=== PATIENT | female | born 1965 | race Two or more races ===

== ENCOUNTER 2018-11-06 14:37 | Inpatient (IN) | payer OTHER ==
[~2018-11-06] VITALS: Ht 193 cm; Wt 103.5 kg
[2018-11-06 18:59] VITALS: BP 139/89
[2018-11-06] MEDS ORDERED: HYDROCODONE/APAP 5/325MG 1 EACH TABLET PO PRN (19:30)
[2018-11-06] MEDS ORDERED: Z GUARD REMEDY 2 OZ OINT TP PRN (19:30)
[2018-11-06] MEDS ORDERED: ZOLPIDEM TARTRATE 5 MG TABLET PO PRN (19:30)
[2018-11-06] MEDS ORDERED: ONDANSETRON HCL/PF 4 MG/2 ML VIAL IVP PRN (19:30)
[2018-11-06] MEDS ORDERED: ACETAMINOPHEN 325 MG TABLET PO PRN (19:30)
[2018-11-06 20:00] VITALS: BP 138/84
[2018-11-06] MEDS ORDERED: CEFTRIAXONE 1 G in IV D5W 50 ML IV SCH (20:00)
--- NOTE | 2018-11-06 20:10 | NUR ---
AC/DC REWINDER NOTES RECEIVED REPORT FROM CHIDI Galaviz RN. PATIENT A/A/O X3, ABLE TO MAKE NEEDS KNOWN. BREATHING EVEN & UNLABORED, TOLERATING ROOM AIR. DENIES ANY SOB OR CONGESTION BUT C/O OF SLIGHT SORE THROAT. ON TELE W/ SINUS RHYTHM, HR 70S. RIGHT HAND IV #18 INTACT & PATENT W/ DRESSING CDI. ABLE TO AMBULATE & TURN INDEPENDENTLY IN BED. DENIES ANY PAIN OR DISCOMFORT @ THIS TIME. SAFETY MEASURES IN PLACE W/ SIDE RAILS UP & CALL LIGHT WITHIN REACH. INSTRUCTED TO CALL FOR ASSISTANCE.
[2018-11-06] MEDS ORDERED: ENOXAPARIN SODIUM 40 MG/0.4 ML DISP.SYRIN SQ ONE (22:00)
[2018-11-06] MEDS ORDERED: DOXYCYCLINE 100 MG VIAL ONE (22:23)
[2018-11-06] MEDS: OSELTAMIVIR PHOSPHATE 75 MG CAPSULE PO SCH (22:32)
[2018-11-06] MEDS: DOXYCYCLINE 100 MG in IV NS 0.9% 100 ML IV SCH (22:33)
[2018-11-06] MEDS: IV NS 0.9% 1,000 ML IV PRN (22:38)
--- NOTE | 2018-11-07 01:00 | NUR ---
TRANSPORTATION DESIGN ENGINEER NOTES PATIENT C/O COUGH & FEELING CONGESTED & ASKING FOR MEDICINE FOR COUGH. INFORMED DR JACOME & RECEIVED NEW ORDER FOR ROBITUSSIN PRN. NEW ORDER NOTED & CARRIED OUT.
[2018-11-07 04:00] VITALS: BP 146/79
[2018-11-07 06:16] LABS: BASOPHILS % (AUTO) 0.7 % (0.0-2.0); EOSINOPHILS % (AUTO) 5.7 % (0.0-6.0); HEMATOCRIT 41 % (33-45); HEMOGLOBIN 13.9 g/dL (11.5-14.8); LYMPHOCYTES # (AUTO) 1.3 /CMM (0.8-4.8); LYMPHOCYTES % (AUTO) 33.4 % (20.0-44.0); MEAN CORPUSCULAR HGB CONC 34 g/dl (31.0-36.0); MEAN CORPUSCULAR VOLUME 91 fL (82-100); MONOCYTES # (AUTO) 0.3 /CMM (0.1-1.30); MONOCYTES % (AUTO) 7.9 % (2.0-12.0); NEUTROPHILS % (AUTO) 52.3 % (43.0-81.0); PLATELET COUNT (AUTO) 184 /CMM (150-450); RED BLOOD CELL COUNT(AUTO) 4.55 MIL/uL (4.0-5.2); WHITE BLOOD COUNT (AUTO) 3.8 K/uL (4.3-11.0)
[2018-11-07 06:34] LABS: ALBUMIN 3.2 g/dL (3.4-5.0); BILIRUBIN,TOTAL 0.3 mg/dL (0.2-1.0); CALCIUM, SERUM 8.3 mg/dL (8.5-10.1); CREATININE 0.7 mg/dL (0.6-1.3); MAGNESIUM 1.7 mg/dL (1.8-2.4); PHOSPHORUS 3.5 mg/dL (2.5-4.9); POTASSIUM 3.9 mmol/L (3.5-5.1); TOTAL PROTEIN, SERUM 6.7 g/dL (6.4-8.2)
[2018-11-07 06:38] LABS: THYROID STIMULATING HORMONE 2.645 uIU/mL (0.358-3.74)
--- NOTE | 2018-11-07 07:20 | NUR ---
RN OPENING NOTE RECEIVED PATIENT AWAKE AND ALERT. CHINESE SPEAKING. ON BEDSIDE. NO EDEMA WAS NOTED. PATENT AMBULATES TO THE RESTROOM BY HERSELF. SKIN IS INTACT. HAS A LEFT HAND #20 WITH NS RUNNING AT 100ML/HR. NO COMPLAINS OF ANY PAIN OR ANY SOB. PATIENT ASKED FOR COUGH MEDICATION. WILL GIVE TO HER ARIANNE. BED ON LOW POSITION. CALL LIGHT WITHIN REACH. WILL CONTINUE TO MONITOR PATIENT THROUGHOUT THE SHIFT
[2018-11-07] MEDS: GUAIFENESIN/D-METHORPHAN HB 5 ML UDC PO PRN ×2 (07:35→12:12)
[2018-11-07 08:00] VITALS: BP 125/85
[2018-11-07] MEDS: DOXYCYCLINE 100 MG in IV NS 0.9% 100 ML IV SCH ×2 (09:20→21:58)
[2018-11-07] MEDS: OSELTAMIVIR PHOSPHATE 75 MG CAPSULE PO SCH ×2 (09:22→16:37)
[2018-11-07] MEDS: IV NS 0.9% 1,000 ML IV PRN ×2 (09:27→22:52)
[2018-11-07] MEDS: CEFTRIAXONE 1 G in IV D5W 50 ML IV SCH (11:01)
[2018-11-07] MEDS: Magnesium 1GM/D5W 100ML PREMIX 100 ML IV SCH ×2 (12:00→13:04)
[2018-11-07] MEDS ORDERED: Magnesium 1 GM/2 ML VIAL IV ONE (14:00)
[2018-11-07 16:00] VITALS: BP 113/83
--- NOTE | 2018-11-07 19:40 | NUR ---
RN CLOSING NOTE PATIENT IN BED AWAKE AND ALERT. FAMILY ON BEDSIDE. ALL MEDS ARE GIVEN. NO COMPLAINS OF ANY PAIN OR ANY SOB AT THIS TIME. PATIENT ASKED FOR COUGH MEDS THIS MORNING. ALL MEDS ADMINISTERED. BED ON LOW POSITION, AMBULATORY. CALL LIGHT WITHIN REACH. ENDORSED TO NOC SHIFT RN
[2018-11-07 20:20] VITALS: BP 117/77
[2018-11-07] MEDS: ENOXAPARIN SODIUM 40 MG/0.4 ML DISP.SYRIN SQ SCH (21:53)
[2018-11-08 04:00] VITALS: BP 107/55
[2018-11-08 04:02] VITALS: BP 107/55
[2018-11-08 06:18] LABS: BASOPHILS % (AUTO) 0.5 % (0.0-2.0); EOSINOPHILS % (AUTO) 6.2 % (0.0-6.0); HEMATOCRIT 40 % (33-45); HEMOGLOBIN 13.6 g/dL (11.5-14.8); LYMPHOCYTES # (AUTO) 1.5 /CMM (0.8-4.8); LYMPHOCYTES % (AUTO) 36.1 % (20.0-44.0); MEAN CORPUSCULAR HGB CONC 34 g/dl (31.0-36.0); MEAN CORPUSCULAR VOLUME 91 fL (82-100); MONOCYTES # (AUTO) 0.3 /CMM (0.1-1.30); MONOCYTES % (AUTO) 8.4 % (2.0-12.0); NEUTROPHILS % (AUTO) 48.8 % (43.0-81.0); PLATELET COUNT (AUTO) 175 /CMM (150-450); RED BLOOD CELL COUNT(AUTO) 4.44 MIL/uL (4.0-5.2); WHITE BLOOD COUNT (AUTO) 4.2 K/uL (4.3-11.0)
[2018-11-08 06:29] LABS: CALCIUM, SERUM 8.5 mg/dL (8.5-10.1); CREATININE 0.8 mg/dL (0.6-1.3); MAGNESIUM 1.9 mg/dL (1.8-2.4); PHOSPHORUS 3.7 mg/dL (2.5-4.9); POTASSIUM 4.4 mmol/L (3.5-5.1)
--- NOTE | 2018-11-08 06:29 | NUR ---
pt with bronchitis, productive cough, no acute distress, 92% -95% room air. slept well, continue with iv fluids, voiding to toilet ambulatory, had diarrhea possibly from multiple antibiotics, will monitor closely pt made aware. all needs attended, vss,afebrile.
--- NOTE | 2018-11-08 07:42 | NUR ---
RN OPENING NOTE RECEIVED PATIENT AWAKE AND ALERT. FRENCH SPEAKING. ON BEDSIDE. NO EDEMA WAS NOTED. PATENT AMBULATES TO THE RESTROOM BY HERSELF. SKIN IS INTACT. HAS A LEFT HAND #20 WITH NS RUNNING AT 100ML/HR. NO COMPLAINS OF ANY PAIN OR ANY SOB. BED ON LOW POSITION. CALL LIGHT WITHIN REACH. WILL CONTINUE TO MONITOR PATIENT THROUGHOUT THE SHIFT
[2018-11-08] MEDS: DOXYCYCLINE 100 MG in IV NS 0.9% 100 ML IV SCH ×2 (09:43→20:36)
[2018-11-08] MEDS: OSELTAMIVIR PHOSPHATE 75 MG CAPSULE PO SCH ×2 (09:43→16:01)
[2018-11-08] MEDS: IV NS 0.9% 1,000 ML IV PRN ×2 (09:47→21:56)
[2018-11-08] MEDS: CEFTRIAXONE 1 G in IV D5W 50 ML IV SCH (10:46)
[2018-11-08 16:00] VITALS: BP 132/73
[2018-11-08] MEDS: LACTOBACILLUS RHAMNOSUS GG 1 EACH CAP.SPRINK PO SCH (16:06)
--- NOTE | 2018-11-08 19:01 | NUR ---
RN CLOSING NOTE PATIENT IN BED AWAKE AND ALERT. ON BEDSIDE. NO COMPLAINS OF ANY PAIN OR ANY SOB. ON 2L NC SATING GOOD AT 98%. ALL MEDS ARE GIVEN. ALL NEEDS MET. DC PLANNING FOR TOMORROW. BED ON LOWEST POSITION, PATIENT AMBULATORY. CALL LIGHT WITHIN REACH. WILL ENDORSE TO NOC SHIFT
[2018-11-08 20:00] VITALS: BP 127/71
--- NOTE | 2018-11-08 20:05 | NUR ---
MS RN NOTES RECEIVED PT ON BED, A/O X 4. WITH FAMILY AT BEDSIDE. ON ROOM AIR NO RESPIRATORY DISTRESS NOTED. IV ACCESS ON LEFT HAND G20 NS @ 100CC/HR PATENT AND INTACT. HEAD OF BED ELEVATED. SIDE RAILS UP. CALL LIGHT WITHIN REACH. BED ALARM ON. WILL CONTINUE TO MONITOR PT CLOSELY.
[2018-11-08] MEDS: ENOXAPARIN SODIUM 40 MG/0.4 ML DISP.SYRIN SQ SCH (20:36)
[2018-11-09 04:00] VITALS: BP 110/72
[2018-11-09 06:22] LABS: BASOPHILS % (AUTO) 0.6 % (0.0-2.0); EOSINOPHILS % (AUTO) 5.6 % (0.0-6.0); HEMATOCRIT 41 % (33-45); HEMOGLOBIN 13.4 g/dL (11.5-14.8); LYMPHOCYTES # (AUTO) 1.7 /CMM (0.8-4.8); LYMPHOCYTES % (AUTO) 36.6 % (20.0-44.0); MEAN CORPUSCULAR HGB CONC 33 g/dl (31.0-36.0); MEAN CORPUSCULAR VOLUME 91 fL (82-100); MONOCYTES # (AUTO) 0.5 /CMM (0.1-1.30); MONOCYTES % (AUTO) 9.8 % (2.0-12.0); NEUTROPHILS # (AUTO) 2.3 /CMM (1.8-8.9); NEUTROPHILS % (AUTO) 47.4 % (43.0-81.0); PLATELET COUNT (AUTO) 165 /CMM (150-450); RED BLOOD CELL COUNT(AUTO) 4.46 MIL/uL (4.0-5.2); WHITE BLOOD COUNT (AUTO) 4.8 K/uL (4.3-11.0)
[2018-11-09 06:48] LABS: CALCIUM, SERUM 8.5 mg/dL (8.5-10.1); CREATININE 0.8 mg/dL (0.6-1.3); MAGNESIUM 1.7 mg/dL (1.8-2.4); POTASSIUM 4.3 mmol/L (3.5-5.1)
--- NOTE | 2018-11-09 07:15 | NUR ---
MS RN OPENING NOTE RECEIVED PATIENT AWAKE AND ALERT. IVORIAN SPEAKING. ON BEDSIDE. NO EDEMA WAS NOTED. PATENT AMBULATES TO THE RESTROOM BY HERSELF. SKIN IS INTACT. HAS A LEFT HAND #20 WITH NS RUNNING AT 100ML/HR. NO COMPLAINS OF ANY PAIN OR ANY SOB. BED ON LOW POSITION. CALL LIGHT WITHIN REACH.SRX2.ON DROPLET PRECAUTIONS. WILL CONTINUE TO MONITOR . Addendum: 11/09/18 at 1820 by DEVON MARROQUIN RN BROTHER AT BEDSIDE
--- NOTE | 2018-11-09 07:20 | NUR ---
MS RN NOTES NO ACUTE CHANGES NOTED DURING THE SHIFT. PROVIDED COMFORT AND SAFETY. WILL ENDORSE TO THE AM NURSE FOR CONTINUITY OF CARE.
[2018-11-09 08:00] VITALS: BP 123/77
[2018-11-09] MEDS ORDERED: DOXYCYCLINE HYCLATE (100 MG) 100 MG TABLET PO SCH (09:00)
[2018-11-09] MEDS: IV NS 0.9% 1,000 ML IV PRN (09:36)
[2018-11-09] MEDS: OSELTAMIVIR PHOSPHATE 75 MG CAPSULE PO SCH ×2 (09:36→16:35)
[2018-11-09] MEDS: LACTOBACILLUS RHAMNOSUS GG 1 EACH CAP.SPRINK PO SCH ×2 (09:36→16:35)
[2018-11-09] MEDS: Magnesium 1GM/D5W 100ML PREMIX 100 ML IV SCH ×2 (10:35→12:47)
[2018-11-09] MEDS: CEFTRIAXONE 1 G in IV D5W 50 ML IV SCH (11:56)
[2018-11-09] MEDS ORDERED: DOXY100T2 PO (13:30)
[2018-11-09] MEDS ORDERED: OSEL75CA PO (13:30)
[2018-11-09 16:00] VITALS: BP 118/64
--- NOTE | 2018-11-09 16:00 | NUR ---
MS RN NOTE SEEN BY DR.TIM COYLE.GOT NEW ORDERS FOR DISCHARGE.
--- NOTE | 2018-11-09 16:17 | NUR ---
MS MATHEMATICIAN RESEARCH NOTE PATIENT D/C HOME IN STABLE CONDITION WITH BROTHER IN PRIVATE CAR.TOOK ALL BELONGINGS.EXIT CARE GIVEN TO PATIENT AND BROTHER.VERBALIZED UNDERSTANDING.INSTRUCTIONS GIVEN TO WEAR MASK AT HOME BECAUSE OF POSITIVE INFLUENZA.EXTRA MASK GIVEN.IV REMOVED ,MINIMAL BLEEDING NOTED.PRESSURE DRESSING APPLIED.CALL MADE TO [facility] [id number] [facility].SPOKE TO CARY AT PHARMACY.THEY RECEIVED NEW ORDERS.INFORMED FAMILY TO INVOICING SPECIALIST MEDICATIONS FROM PHARMACY.INFORMATION GIVEN.NO SKIN ISSUES NOTED.PATIENT REFUSED BODY CHECK.
== END 2018-11-09 21:47 | disposition home or self-care (01) | DRG 133 ==
LOC: TELE1 18:30 → MEDSG1 20:25
PROVIDERS: ADMIT Nurse Practitioner Acute Care; ATTEND Nurse Practitioner Acute Care
DX: J96.01 Acute respiratory failure with hypoxia (principal); E83.42 Hypomagnesemia; J10.1 Influenza due to other identified influenza virus with other respiratory manifestations; D72.819 Decreased white blood cell count, unspecified; E66.9 Obesity, unspecified
CPT/HCPCS: 36415; 71045-TC; 80048-TC; 80053-TC; 80061-TC; 83735-TC; 84100-TC; 84443-TC; 85025-TC; 87081-TC; G0378; J0696; J1650; J3475; J3490; J7030; J7060

== ENCOUNTER 2019-02-24 08:26 | Emergency (ER) | payer OTHER ==
[~2019-02-24] VITALS: Ht 162.6 cm; Wt 102.1 kg
[~2019-02-24 08:26] MED LIST: DOXY100T2 PO; OSEL75CA PO
[2019-02-24 08:46] LABS: APPEARANCE,URINE Clear (CLEAR); BILIRUBIN,URINE Negative (NEGATIVE); BLOOD, URINE Negative Ery/uL (NEGATIVE); KETONES,URINE Negative (NEGATIVE); LEUKOCYTE ESTERASE ,URINE Negative (NEGATIVE); NITRITE, URINE Negative (NEGATIVE); PH,URINE 7.5 (5.0-8.0); PROTEIN,URINE Negative (NEGATIVE); UGLUCOSE Negative (NEGATIVE); UROBILINOGEN,URINE 0.2 EU/dL (0.2)
[2019-02-24] MEDS ORDERED: KETOROLAC TROMETHAMINE 15 MG/ML VIAL ONE (08:50)
[2019-02-24 08:52] LABS: COLOR,URINE Light Yellow (YELLOW)
[2019-02-24] MEDS ORDERED: IV NS 0.9% 1,000 ML BAG IV ONE (09:00)
[2019-02-24] MEDS ORDERED: KETOROLAC TROMETHAMINE INJ 30 MG/ML VIAL IV ONE (09:00)
[2019-02-24 09:01] LABS: BASOPHILS % (AUTO) 0.8 % (0.0-2.0); EOSINOPHILS % (AUTO) 3.8 % (0.0-6.0); HEMATOCRIT 42 % (33-45); LYMPHOCYTES # (AUTO) 1.5 /CMM (0.8-4.8); LYMPHOCYTES % (AUTO) 24.2 % (20.0-44.0); MEAN CORPUSCULAR HGB CONC 34 g/dl (31.0-36.0); MEAN CORPUSCULAR VOLUME 92 fL (82-100); MONOCYTES # (AUTO) 0.4 /CMM (0.1-1.30); MONOCYTES % (AUTO) 5.7 % (2.0-12.0); NEUTROPHILS # (AUTO) 4.1 /CMM (1.8-8.9); NEUTROPHILS % (AUTO) 65.5 % (43.0-81.0); PLATELET COUNT (AUTO) 256 /CMM (150-450); RED BLOOD CELL COUNT(AUTO) 4.54 MIL/uL (4.0-5.2); WHITE BLOOD COUNT (AUTO) 6.2 K/uL (4.3-11.0)
[2019-02-24 09:08] LABS: CALCIUM, SERUM 8.9 mg/dL (8.5-10.1); CREATININE 0.7 mg/dL (0.6-1.3); POTASSIUM 4.4 mmol/L (3.5-5.1)
[2019-02-24 09:13] LABS: ALBUMIN 3.6 g/dL (3.4-5.0); BILIRUBIN,DIRECT 0.1 mg/dL (0.0-0.2); BILIRUBIN,TOTAL 0.2 mg/dL (0.2-1.0)
[2019-02-24 10:25] VITALS: BP 129/90
--- NOTE | 2019-02-24 10:26 | NUR ---
For discharge ACI given verbalized understanding Home ambulatory Stable
== END 2019-02-24 10:26 | disposition home or self-care (01) ==
LOC: ER 08:26
DX: M54.42 Lumbago with sciatica, left side (principal); Z88.6 Allergy status to analgesic agent
CPT/HCPCS: 36415; 74176; 80048; 80076; 81001; 83690; 85025; 87086; 96374; 99284; J1885; J7030; 81000-TC

== ENCOUNTER 2019-11-18 12:54 | Emergency (ER) | payer OTHER ==
[~2019-11-18] VITALS: Ht 162.6 cm; Wt 90.7 kg
[2019-11-18 12:59] VITALS: BP 160/87
--- NOTE | 2019-11-18 13:19 | NUR ---
Patient discharged to home in stable condition. Written and verbal after care instructions given. Patient verbalizes understanding of instruction.
== END 2019-11-18 13:20 | disposition home or self-care (01) ==
LOC: ER 12:58
DX: R05 Cough (principal); R09.81 Nasal congestion; Z88.6 Allergy status to analgesic agent

== ENCOUNTER 2021-10-28 17:55 | Emergency (ER) | payer OTHER ==
[~2021-10-28] VITALS: Ht 162.6 cm; Wt 93.9 kg
--- NOTE | 2021-10-28 17:57 | NUR ---
KORY THIS 56YO FEMALE PATIENT, AMBULATORY, WITH CC OF LEFT ARM PAIN RADIATING TO LEFT SIDE OF NECK AFTER HER COVID VACCINATION YESTERDAY.
--- NOTE | 2021-10-28 17:57 | NUR ---
Note yue in EDM - 10/28/21 at 2006 by LULÚ KORY THIS 56YO FEMALE PATIENT, AMBULATORY, WITH CC OF LEFT ARM PAIN RADIATING TO LEFT SIDE OF NECK AFTER HER COVID VACCINATION YESTERDAY.
--- NOTE | 2021-10-28 18:00 | NUR ---
SEEN BY ER WITH ORDERS TO BE CARRIED OUT
--- NOTE | 2021-10-28 18:10 | NUR ---
XRAY OF LEFT SHOULDER DONE AT BEDSIDE.
[2021-10-28] MEDS ORDERED: KETOROLAC TROMETHAMINE INJ 60 MG/2 ML VIAL IM ONE (18:30)
--- NOTE | 2021-10-28 18:31 | NUR ---
TORADOL IM GIVEN ON RIGHT DELTOID MUSCLE
[2021-10-28] MEDS ORDERED: KETOROLAC TROMETHAMINE INJ 30 MG/ML VIAL ONE (18:54)
[2021-10-28] MEDS ORDERED: CYCLOBENZAPRINE 10 MG TABLET ONE (18:54)
[2021-10-28] MEDS ORDERED: CYCLOBENZAPRINE 10 MG TABLET PO ONE (19:00)
--- NOTE | 2021-10-28 19:00 | NUR ---
PATIENT FELT BETTER WITH HER LEFT ARM PAIN.
[2021-10-28] MEDS ORDERED: IBUP-1955 PO (19:26)
[2021-10-28] MEDS ORDERED: HYDR-4209 PO (19:26)
[2021-10-28] MEDS ORDERED: CYCL10TA9 PO (19:29)
[2021-10-28] MEDS ORDERED: HYDR-4303 PO (19:29)
--- NOTE | 2021-10-28 20:00 | NUR ---
Patient discharged to home in stable condition. Written and verbal after care instructions given. Patient verbalizes understanding of instruction.
[2021-10-28 20:15] VITALS: BP 139/84
== END 2021-10-28 20:16 | disposition home or self-care (01) ==
LOC: ER 17:58
DX: S16.1XXA Strain of muscle, fascia and tendon at neck level, initial encounter (principal); M19.012 Primary osteoarthritis, left shoulder; Z88.6 Allergy status to analgesic agent; Z79.899 Other long term (current) drug therapy; X58.XXXA Exposure to other specified factors, initial encounter; Y93.89 Activity, other specified; Y92.89 Other specified places as the place of occurrence of the external cause; Y99.8 Other external cause status
CPT/HCPCS: 73030; 96372; 99283; J1885